=== PATIENT | male | born 1995 | race African-American/Black ===

== ENCOUNTER 2017-07-23 15:02 | Emergency (ER) | payer SELFPAY ==
[~2017-07-23] VITALS: Ht 185.4 cm; Wt 129.6 kg
[2017-07-23] MEDS ORDERED: ALBUTEROL SULFATE 5 MG/ML 20 ML NEB SOLN [BULK] NEB ONE (16:45)
[2017-07-23] MEDS ORDERED: KETOROLAC TROMETHAMINE 30 MG/ML VIAL IM ONE (16:45)
[2017-07-23] MEDS ORDERED: PredniSONE 20 MG TABLET PO ONE (16:45)
[2017-07-23 17:41] VITALS: BP 137/84
== END 2017-07-23 17:46 | disposition home or self-care (01) ==
LOC: EMS 15:05
DX: J45.901 Unspecified asthma with (acute) exacerbation (principal); R06.02 Shortness of breath
CPT/HCPCS: 94640; 96372; 99283; J1885; J7512; J7611